=== PATIENT | female | born 1960 | race Caucasian/White ===

== ENCOUNTER → 2017-02-24 | Outpatient (CLI) | payer MEDICARE, MEDICAID ==
[~2017-02-24] MED LIST: AMITRIPTYLINE 550 MG PO; ASPIRIN 81MG TA81 MG; CITALOPRAM HYDR40 MG PO; DICLOFENAC SODI75 M2 PO; ESTRACE 0.5MG0.5 MG PO; GABAPENTIN300 MG PO; IBUPROFEN600 MG PO; KEFLEX 500MG.500 MG PO; LEXAPRO 10 MG T10 MG PO; LORTAB 5/3251 TAB PO; MOTRIN 600MG.600 MG PO; OXYCODONE HYDROC5 MG PO; Oxycodone5 MG NG; Oxycodone5 MG PO; PHENERGAN 25MG.25 M1 PO; SEROQUEL50 MG PO; SYNTHROID 0.0.075 MG; TOPAMAX100 MG; TOPAMAX50 MG PO; TOPIRAMATE50 MG PO; TRAMADOL50 M1 PO; TUSSIONEX PENN480 ML PO; VERAPAMIL SR 2240 MG PO; VICODIN 5/500 T1 TAB PO
--- NOTE | 2017-02-28 14:52 | RADIOLOGY REPORT PS360 ---
DIG MAMM-SCREEN TRENT W/CAD CAD Screening COMPARISON: Digital mammograms 09/28/2014 and 11/05/2015 INDICATION: There is a history of breast cancer patient maternal grandmother diagnosed after menopause. TECHNIQUE: Standard CC and MLO images were obtained. R2 CAD reviewed. FINDINGS: The breasts are closed primarily of fat with minimal scattered fibroglandular densities in each breast. Again noted is a stable asymmetric density upper outer quadrant left breast again best seen on CC view. There is no suspicious lesion and no suspicious microcalcifications. There are stable benign-appearing density left axilla likely a low position node. IMPRESSION: Fibrofatty parenchyma with no suspicious lesion seen recommend yearly follow-up BI-RADS CATEGORY: 2_Benign RECOMMENDED FOLLOWUP: 12M 12 MONTH FOLLOW-UP (A letter has been sent to the patient regarding results of the study.)
== END ==
LOC: RAD 15:21
DX: Z12.31 Encounter for screening mammogram for malignant neoplasm of breast (principal)
CPT/HCPCS: G0202

== ENCOUNTER → 2017-03-22 | Outpatient (CLI) | payer MEDICARE, MEDICAID ==
[2017-03-22 12:37] LABS: AMPHETAMINES/METAMPHETAMINES NEGATIVE ng/mL (<1000)
== END ==
LOC: LAB 11:54
PROVIDERS: Anesthesiology
DX: Z79.899 Other long term (current) drug therapy (principal)

== ENCOUNTER → 2017-04-15 | Outpatient (CLI) | payer MEDICARE, MEDICAID ==
--- NOTE | 2017-04-16 08:26 | RADIOLOGY REPORT PS360 ---
MRI-C-SPINE W/O, MRI-3D RENDERING/MYELOGRAM HISTORY: Neck pain and bilateral arm pain and numbness and tingling greater on the right NECK PAIN ORDERING PHYSICIAN: Jonathan Solorio MD PATIENT AGE: 57 years COMPARISON: 11/29/2014 TECHNIQUE: Standard multiplanar multiecho sequences are performed without contrast. 3-D MIP and myelographic images are also rendered and reviewed FINDINGS: There is normal alignment with straightening of the cervical lordosis. The craniocervical junction has an unremarkable appearance. C2-C3: Unremarkable. C3-C4: Minimal anterolisthesis of C3 of 1 to 2 mm. Facet hypertrophic changes present on the right with right-sided foraminal narrowing with mild degenerative disc disease. C4-C5: Minimal left foraminal narrowing from mild facet hypertrophy. C5-C6: Degenerative disc disease with type II endplate changes and minimal posterior ridging of the endplates with mild left foraminal narrowing from uncovertebral hypertrophy. C6-C7: Unremarkable. C7-T1: Unremarkable. IMPRESSION: 1. Cervical spondylosis as detailed above with degenerative disc disease and facet and uncovertebral hypertrophy. The degenerative disc disease is worse at C5-C6. 2. Right foraminal narrowing at C3-C4 and mild left foraminal narrowing at C4-C5 and C5-C6. 3. No disc herniation or canal stenosis. 4. Overall no significant change
== END ==
LOC: RAD 10:30
DX: M54.2 Cervicalgia (principal)